=== PATIENT | female | born 1955 | race Caucasian/White ===

== ENCOUNTER 2019-09-03 08:55 | Inpatient (IN) | payer OTHER ==
[~2019-09-03] VITALS: Ht 167.6 cm; Wt 72.1 kg
--- NOTE | ~2019-09-03 | HC ---
[facility] [place] [address] CONSULTATION Name: VALERY ANN Room #: 441-P ADM IN M.R.#: [id number] Admission: 09/03/19 Attend Phys: Juan Dickens, Discharge: Date of : 51 Report #: [id number] THIS REPORT FOR: //name// CC: Chase Dickens DATE OF SERVICE: 09/03/2019 REASON FOR CONSULTATION: Left distal femur fracture. HISTORY OF PRESENT ILLNESS: The patient is a 64-year-old female who fell down her stairs this morning, landing on her left knee. She was unable to bear weight afterwards and was brought to the Emergency Room, found to have a distal supracondylar femur fracture. She is being admitted for definitive treatment. PAST MEDICAL HISTORY: Significant for hypertension, spinal stenosis, endometriosis. PAST SURGICAL HISTORY: Tubal ligation, laparotomy for endometriosis, left knee surgery, sinus surgery. SOCIAL HISTORY: She does smoke 1 pack per day, occasional alcohol use. MEDICATIONS: Have been reviewed on the chart. ALLERGIES: No known drug allergies. PHYSICAL EXAMINATION: GENERAL: This is a well-developed, well-nourished female in no acute distress. She is alert and oriented, pleasant, cooperative with exam. EXTREMITIES: Examination of left lower extremity shows pain with range of motion of the left knee. SKIN: Intact. NEUROLOGIC: She is neurologically intact distally with full sensation to light touch and full motor intact. IMAGING: X-ray examination two-view of the left knee showed to have a left supracondylar distal femoral fracture that is impacted and comminuted with overall good alignment. ASSESSMENT: Left distal third supracondylar femur fracture. PLAN: Diagnosis, treatment options were discussed today with the patient and her recommending treatment with ORIF with a lateral locking plate. We will plan to do this tomorrow mid-afternoon pending OR availability. We will place in a knee immobilizer for comfort for now, n.p.o. after midnight. [address] [address] CONSULTATION Name: VALERY ANN Room #: [address] [place] [address] IN ..#: [id number] Admission: 09/03/19 Attend Phys: Juan Dickens, Discharge: Date of : 51 Report #: [id number] Thank you for allowing us to participate in the care of the patient. By: 1211 2100 Florentin Brown MD /nt
[2019-09-03] MEDS ORDERED: NORVASC 2.5 MG2.5 M1 PO (09:07)
[2019-09-03] MEDS ORDERED: LORCET 5-325 M1 EACH PO (09:08)
[2019-09-03] MEDS ORDERED: CELEBREX 200 M200 MG PO (09:09)
[2019-09-03] MEDS ORDERED: TOPROL XL50 MG PO (09:10)
[2019-09-03 11:29] LABS: HEMATOCRIT 43.4 % (37.0-47.0); HEMOGLOBIN 14.5 gm/dL (12.0-15.0); MCH 33.6 pg (26.0-34.0); MCHC 33.5 g/dL (28.0-37.0); MCV 100.2 fL (80.0-100.0); RBC 4.33 mil/uL (4.20-5.00); RDW 13.9 % (10.5-14.5); WBC 11.6 thou/uL (4.0-11.0)
[2019-09-03 11:35] LABS: CALCIUM 9.7 mg/dL (8.5-10.1); CREATININE 0.6 mg/dL (0.6-1.0)
[2019-09-03 12:35] VITALS: BP 113/61
[2019-09-03 13:57] VITALS: BP 133/65
[2019-09-03 14:07] VITALS: BP 132/76
--- NOTE | 2019-09-03 16:29 | EKG ---
[place] [address] [facility] [place] [address] ELECTROCARDIOGRAM REPORT Name: VALERY ANN Room #: 441-P ADM IN M.R.#: [id number] Admission: 09/03/19 Attend Phys: Juan Dickens, Discharge: Date of : 51 Report #: [id number] THIS REPORT FOR: //name// [facility] ED Test Date: 2019-09-03 Test Time: 10:52:07 Pat Name: VALERY COOPER Department: Room: [facility] Gender: F Core Winder: QUIQUE : 1955 Requested By: Shanel Dubose Order Number: [id number] MD: Jeff Macias Measurements Intervals Mclaughlin Rate: 73 P: 73 NJ: 153 QRS: 65 QRSD: 93 T: 62 QT: 422 QTc: 465 Interpretive Statements Sinus rhythm left atrial enlargement Poor R-wave progression Unspecific ST-T wave changes No previous ECG available for comparison Electronically Signed On 09-03-2019 16:28:50 BASIC SCIENCES PROFESSOR by Jeff Macias [email or web address] <ELECTRONICALLY SIGNED> By: Jeff Macias MD 09/03/19 1628 51 51 Jeff Macias MD /EPI
[2019-09-03 16:38] VITALS: BP 113/63
--- NOTE | 2019-09-03 19:23 | NUR ---
64 YO FEMALE ADMITTED BY CART FROM ED. A&OX4. IV INTACT IN L AC IFUSING LR W/O COMPS. SARABIA TO DD DRAINING CLEAR ALLYSON COLOR URINE. PT TO BE NPO AFTER MN. SOUSE AT BEDSIDE. WILL CONT POC.
[2019-09-03 19:56] VITALS: BP 119/70
[2019-09-04 05:36] LABS: HEMATOCRIT 37.3 % (37.0-47.0); MCH 33.8 pg (26.0-34.0); MCHC 33.5 g/dL (28.0-37.0); MCV 100.9 fL (80.0-100.0); RBC 3.7 mil/uL (4.20-5.00); RDW 14.1 % (10.5-14.5); WBC 7.6 thou/uL (4.0-11.0)
[2019-09-04 05:37] LABS: HEMOGLOBIN 12.5 gm/dL (12.0-15.0)
[2019-09-04 05:46] LABS: ALBUMIN 3.1 g/dL (3.4-5.0); CALCIUM 9.3 mg/dL (8.5-10.1); CREATININE 0.6 mg/dL (0.6-1.0); PHOSPHORUS 3.3 mg/dL (2.5-4.9); POTASSIUM 3.9 mmol/L (3.5-5.1)
--- NOTE | 2019-09-04 08:29 | NUR ---
PT LYING IN BED. OXY PROVIDING PAIN RELIEF. DENIES NAUSEA. PLAN FOR SURGERY NOW PLANNED FOR 09/05. RESTING COMFORTABLY. CALL LIGHT WITHIN REACH. WILL CONTINUE TO PROVIDE FREQUENT OBSERVATION.
--- NOTE | 2019-09-04 13:56 | NUR ---
PT LEFT FOR PRE-OP AT 1300. PT W/O PAIN OR RESP DISTRESS.
[2019-09-04 14:45] VITALS: BP 143/69
[2019-09-04 16:15] VITALS: BP 131/75
--- NOTE | 2019-09-04 16:26 | NUR ---
PT RETURNED FROM SURGERY AT 1430 V.S.98.7 18 85 143/69 O2 SAT = 96% 2L/NC HAS IMMBOLIZER TO LEFT KNEE WITH NA WRAP UNDERNEATH ICE PACKS TO KNEE. PT GIVEN CLEAR LIQUIDS AND WILL ORDER REG DIET FOR DINNER.
--- NOTE | 2019-09-04 17:06 | NUR ---
ASSSESSMENT-PT LIVES IN A SPLIT LEVEL HOME WITH HER . BOTH STILL WORK AND DRIVE. THEY HAVE A SON IN [place]. THEY HAVE A CLEANING LADY THAT COMES EVERY OOTHER WEEK. THEY HAVE 2 SETS OF CRUTCHES AND A CANE AT HOME THAT NO ONE WAS USING. PT GOING TO SURGERY THIS AFTERNOON. FOLLOWING TO ASSIST WITH DC PLANNING. DISCUSSED PROBABLE NEED FOR A ROLLER WALKER AND THERAPY POST-OP.
[2019-09-04 17:15] VITALS: BP 138/72
[2019-09-04 18:53] VITALS: BP 112/62
[2019-09-05 04:18] VITALS: BP 137/72
--- NOTE | 2019-09-05 05:14 | NUR ---
PATIENT ALERT AND ORIENTED X4. DENIED PAIN AT BERGINNING OF SHIFT. C/O PAIN NOW OF 02/13, TYLENOL GIVEN. IMMOBILIZER ON LEFT LEG. UP TO STAND BY BEDSIDE. TOLERATED WELL. IV PATENT. SLEPT MOST OF NIGHT.
[2019-09-05 06:26] LABS: HEMATOCRIT 35.8 % (37.0-47.0); HEMOGLOBIN 11.8 gm/dL (12.0-15.0)
--- NOTE | 2019-09-05 07:52 | NUR ---
PATIENT HAD SURGERY YESTERDAY FOR AN ORIF ON HER DISTAL FEMUR. AWAITING POST-OP ORDERS TO EVALUATE PATIENT.
--- NOTE | 2019-09-05 09:12 | O ---
[facility] [place] [address] OPERATIVE REPORT Name: VALERY ANN Room #: 441-P [facility] IN M.R.#: [id number] Admission: 09/03/19 Attend Phys: Juan Dickens, Discharge: Date of : 51 Report #: [id number] THIS REPORT FOR: //name// CC: Chase Dickens DATE OF SERVICE: 09/04/2019 PREOPERATIVE DIAGNOSIS: Left distal femur supracondylar fracture. POSTOPERATIVE DIAGNOSIS: Left distal femur supracondylar fracture. PROCEDURE: Left distal femur open reduction and internal fixation. SURGEON: Dr. Joseph Pichardo. ANESTHESIA: General. ESTIMATED BLOOD LOSS: Minimal. DRAINS: No drains. TOURNIQUET TIME: Zero. ESTIMATED BLOOD LOSS: 20 mL. DRAINS: None. COMPLICATIONS: No complications. DESCRIPTION OF PROCEDURE: The patient brought to the operating room where she was placed under general anesthesia. Once under adequate general anesthesia, her left lower extremity was prepped and draped in sterile manner. A lateral incision over the distal femur was then made approximately 8 cm in length. It was dissected down through soft tissue to the lateral cortex of the distal femur. The Synthes supracondylar locking plate was then placed on the lateral femur. Subsequent fixation distally was achieved with 1 compression screw and three locking screws. Proximal to this, 4 cortical screws were placed bicortically across the femur under fluoroscopic guidance through a separate small 2 cm incision proximally. Once complete, satisfactory alignment was achieved as verified under fluoroscopy. The wound was irrigated copiously and closed with #1 Vicryl in the tensor fascia layer, 2-0 Vicryl in subcutaneous tissues and devante were used for the skin. The wounds were dressed with Xeroform, 4 x 4s, and sterile soft compressive dressing was placed. There were [facility] [address] [place] [address] OPERATIVE REPORT Name: VALERY ANN Room #: 441-P [facility] IN [facility].#: [id number] Admission: 09/03/19 Attend Phys: Juan Dickens, Discharge: Date of : 51 Report #: [id number] no complications from the procedure. The patient tolerated the procedure well and went to the recovery room without incident. <ELECTRONICALLY SIGNED> By: Joseph Pichardo MD 09/05/19 0912 1422 1434 Joseph Pichardo MD /nt
[2019-09-05 09:13] VITALS: BP 126/69
--- NOTE | 2019-09-05 15:10 | NUR ---
FAXED REFERRAL TO [facility] FOR A ROLLER WALKER SPOKE WITH GIA IN ADM SHE RECEIVED REFERRAL AND WILL HAVE WALKER DELIVERED TODAY.
--- NOTE | 2019-09-05 15:25 | NUR ---
DISCUSSED HOME WITH HH SERVICES TOMORROW AND PT CHOSE [facility] FOR HER ROLLER WALKER. ASKED DC HAIR OR BEAUTY SALON MANAGER TO ASSIST WITH BOTH SERVICES.
--- NOTE | 2019-09-05 16:37 | NUR ---
FAXED REFERRAL TO [facility] SPOKE WITH NIKHIL IN INTAKE SHE CAN ACCEPT AT DC ANTICIPATE DC TOMORROW IF PT DISCHARGES FAX DC ORDERS TO [phone] AND CALL [phone].
--- NOTE | 2019-09-05 18:00 | NUR ---
PT ASSESSED AT START OF SHIFT. WORKED W/ THERAPIST TWICE AND DOING WELL. STRICT NON WT BEARING. PAIN CONTROLED W/ MEDS. EATING AND DRINKING WELL. HAD 2 BM'S THIS SHIFT. PLAN DC TOMORROW.
[2019-09-05 18:19] VITALS: BP 119/58
[2019-09-05 19:01] VITALS: BP 145/67
[2019-09-06 04:23] VITALS: BP 119/74
--- NOTE | 2019-09-06 05:47 | NUR ---
NOC ASSUMED CARE OF PT. PAIN MEDS GIVEN SEE EMAR. A&OX4 ANTICIPATING D/C TOMORROW WITH H/H. [facility] TO BE D/C THIS MORNING AT 0600. PT UP WITH ASSISTX1 TO BATHROOM. KNEE IMMOBILIZIER INTACT AND SCD ON RT CALF. FALL PREC IN PLACE AND CALL LIGHT WITHIN REACH WILL CONT WITH POC TILL EOS
[2019-09-06 09:36] VITALS: BP 129/71
--- NOTE | 2019-09-06 09:43 | NUR ---
PT CARE ASSUMED AT 0700. A&Ox4. PT IS RESTING IN BED WITH IMMOBILZER ON L. LOWER EXTREMITY. PT IS UP WITH STAND BY ASSIST AND A WALKER. PT HAS HER OWN WALKER IN HER ROOM. PT IS INTICIPATING TO DISCHARGE TODAY. SCD IN PLACE ON R. KNEE. PT HAS CHRONIC NECKPAIN WHICH SHE HAS SCHEDULED PAIN MEDICATION ON BOARD FOR. L.LEG IS NON WEIGHT BARING. PT IS TO GO HOME WITH HOME HEALTH. PT. DOES NOT HAVE AN IV IN PLACE ANYMORE. BED IS IN LOW POSITION, AND LOCKED. FALL PRECAUTIONS IN PLACE. CALL LIGHT IN REACH. PT GETS UP AND GOES TO THE BATHROOM WITH WALKER.
[2019-09-06] MEDS ORDERED: OXYCODONE HCL 55 MG PO (14:57)
[2019-09-06] MEDS ORDERED: COLACE 100 MG100 MG PO (14:57)
[2019-09-06] MEDS ORDERED: MIRALAX17 GM PO (14:57)
[2019-09-06] MEDS ORDERED: ACETAMINOPHEN325 M1 PO (14:57)
[2019-09-06 15:09] VITALS: BP 129/71
[2019-09-07 09:20] VITALS: BP 129/71
--- NOTE | 2019-09-07 10:37 | NUR ---
PT DISCHARGED ON 09/06/19 TO HOME WITH HH FAXED DC ORDERS/SUMMARY TO [facility] SPOKE WITH NIKHIL IN INTAKE SHE RECEIVED DC ORDERS AND WILL NOTIFY PT TIME OF VISITS.
== END 2019-09-06 16:15 | disposition home health service (06) | DRG 956 ==
LOC: ER 08:55 → EROBS 11:47 → 4S 11:47
PROVIDERS: Emergency Medicine; Orthopaedic Surgery Foot and Ankle Surgery; Surgery; ADMIT Surgery
PROC: 0QSC06Z Reposition Left Lower Femur with Intramedullary Internal Fixation Device, Open Approach (ICD-10-PCS; principal; 2019-09-04)
DX: S72.452A Displaced supracondylar fracture without intracondylar extension of lower end of left femur, initial encounter for closed fracture (principal); S32.9XXA Fracture of unspecified parts of lumbosacral spine and pelvis, initial encounter for closed fracture; I10 Essential (primary) hypertension; W10.9XXA Fall (on) (from) unspecified stairs and steps, initial encounter; Y93.01 Activity, walking, marching and hiking; N80.9 Endometriosis, unspecified; F17.210 Nicotine dependence, cigarettes, uncomplicated; M48.00 Spinal stenosis, site unspecified; F10.10 Alcohol abuse, uncomplicated; M54.2 Cervicalgia; G89.29 Other chronic pain; Z79.2 Long term (current) use of antibiotics; Y92.89 Other specified places as the place of occurrence of the external cause; Y99.8 Other external cause status; Z90.89 Acquired absence of other organs; Z79.891 Long term (current) use of opiate analgesic; Z79.899 Other long term (current) drug therapy
CPT/HCPCS: 10102; 50010; 50101; 50386; 50417; 51412; 55430; 56524; 56525; 62110; 62900; 70005